=== PATIENT | male | born 1955 | race Caucasian/White ===

== ENCOUNTER 2016-12-06 09:39 | Inpatient (IN) | payer MEDICARE, OTHER ==
[~2016-12-06] VITALS: Ht 177.8 cm; Wt 76.7 kg
[2016-12-06 10:40] LABS: BUN/CREATININE RATIO 15 (0-10)
[2016-12-06 10:53] LABS: HEMOGLOBIN 17.9 gm/dl (14.0-17.5); RED BLOOD COUNT 5.78 M/UL (4.20-5.50); WHITE BLOOD COUNT 2.7 K/UL (4.5-11.0)
[2016-12-06 16:12] LABS: HEMOGLOBIN 16.5 gm/dl (14.0-17.5); RED BLOOD COUNT 5.38 M/UL (4.20-5.50)
[2016-12-06 16:14] LABS: WHITE BLOOD COUNT 3.5 K/UL (4.5-11.0)
[2016-12-06] MEDS ORDERED: NITROGLYCERIN0.4 MG SL (17:54)
[2016-12-06] MEDS ORDERED: PROVENTIL HFA 61 INH INH (18:01)
[2016-12-07 06:30] LABS: BUN/CREATININE RATIO 18 (0-10)
[2016-12-07 06:40] LABS: HEMOGLOBIN 15.8 gm/dl (14.0-17.5); RED BLOOD COUNT 5.14 M/UL (4.20-5.50); WHITE BLOOD COUNT 2.9 K/UL (4.5-11.0)
[2016-12-07 17:46] LABS: ACINETOBACTER BAUMANNII Not Detected (Negative); CANDIDA ALBICANS Not Detected (Negative); CANDIDA KRUSEI Not Detected (Negative); CANDIDA TROPICALIS Not Detected (Negative); ENTEROCOCCUS Not Detected (Negative); ESCHERICHIA COLI Not Detected (Negative); HAEMOPHILUS INFLUENZAE Not Detected (Negative); KLEBSIELLA OXYTOCA Not Detected (Negative); KLEBSIELLA PNEUMONIAE Not Detected (Negative); KPC-CARBAPENEM-RESISTANCE GENE Not Detected (Negative); PROTEUS Not Detected (Negative); PSEUDOMONAS AERUGINOSA Not Detected (Negative); SERRATIA MARCESANS Not Detected (Negative); STAPHYLOCOCCUS AUREUS Not Detected (Negative); STREP AGALACTIAE (GROUP B) Not Detected (Negative); STREP PYOGENES (GROUP A) Not Detected (Negative); STREPTOCOCCUS Not Detected (Negative); mecA (METHICILLIN RESIST GENE Not Detected (Negative); vanA/B (VANCOMYCIN RESIST GENE Not Detected (Negative)
[2016-12-07 19:34] LABS: STAPHYLOCOCCUS DETECTED (Negative)
[2016-12-08 06:22] LABS: HEMOGLOBIN 15.2 gm/dl (14.0-17.5); RED BLOOD COUNT 4.97 M/UL (4.20-5.50); WHITE BLOOD COUNT 8.9 K/UL (4.5-11.0)
[2016-12-08 06:35] LABS: BUN/CREATININE RATIO 24 (0-10)
[2016-12-09 06:18] LABS: HEMOGLOBIN 14.6 gm/dl (14.0-17.5); RED BLOOD COUNT 4.87 M/UL (4.20-5.50)
[2016-12-09 06:29] LABS: BUN/CREATININE RATIO 23 (0-10)
[2016-12-09] MEDS ORDERED: LOPRESSOR 25 MG25 MG PO (13:26)
[2016-12-09] MEDS ORDERED: DULERA 100 MCG8.8 GM INH (13:27)
[2016-12-09] MEDS ORDERED: THERAGRAN M TAB1 EA PO (13:29)
[2016-12-09] MEDS ORDERED: SPIRIVA HANDIH18 MCG INH (13:30)
[2016-12-09] MEDS ORDERED: LISINOPRIL2.5 MG PO (13:30)
== END 2016-12-09 14:02 | disposition home or self-care (01) | DRG 813 ==
LOC: ER1 09:39 → ZEROF 14:28 → M/S 17:25
PROVIDERS: Physician Assistant; Specialist/Technologist Athletic Trainer; ADMIT Internal Medicine Infectious Disease
PROC: 6A550Z2 Pheresis of Platelets, Single (ICD-10-PCS; principal; 2016-12-06)
DX: D69.6 Thrombocytopenia, unspecified (principal); J44.1 Chronic obstructive pulmonary disease with (acute) exacerbation; E87.1 Hypo-osmolality and hyponatremia; E87.2 Acidosis; K70.30 Alcoholic cirrhosis of liver without ascites; B34.9 Viral infection, unspecified; I70.212 Atherosclerosis of native arteries of extremities with intermittent claudication, left leg; D75.1 Secondary polycythemia; I25.119 Atherosclerotic heart disease of native coronary artery with unspecified angina pectoris; F10.10 Alcohol abuse, uncomplicated; F17.210 Nicotine dependence, cigarettes, uncomplicated; Z95.1 Presence of aortocoronary bypass graft; Z95.5 Presence of coronary angioplasty implant and graft; Z91.19 Patient's noncompliance with other medical treatment and regimen; Z91.14 Patient's other noncompliance with medication regimen; Z72.3 Lack of physical exercise; Z79.899 Other long term (current) drug therapy; Z98.49 Cataract extraction status, unspecified eye; Z98.890 Other specified postprocedural states; Z82.49 Family history of ischemic heart disease and other diseases of the circulatory system; Z83.3 Family history of diabetes mellitus
CPT/HCPCS: ECHO; 36415; 36600; 71010; 80053; 81001; 82150; 82436; 82550; 82553; 82607; 82747; 82803; 83615; 83690; 83735; 83874; 83880; 83921; 84133; 84300; 84484; 85007; 85025; 85027; 85384; 85610; 85730; 86850; 86900; 86901; 87040; 87077; 87086; 87150; 87186; 93005; 93306; 93925; 94640; 94664; 99285; G0480; J0696; J2405; J2930; J7030; J7040; J7050; P9035; Q0163; Q9962

== ENCOUNTER → 2017-01-07 | Outpatient (CLI) | payer MEDICARE, OTHER ==
[~2017-01-07] MED LIST: DULERA 100 MCG8.8 GM INH; LISINOPRIL2.5 MG PO; LOPRESSOR 25 MG25 MG PO; NITROGLYCERIN0.4 MG SL; PROVENTIL HFA 61 INH INH; SPIRIVA HANDIH18 MCG INH; THERAGRAN M TAB1 EA PO
== END ==
LOC: HEART 5 08:44
DX: I50.20 Unspecified systolic (congestive) heart failure (principal)
CPT/HCPCS: 78452; A9502; J2785

== ENCOUNTER 2020-12-12 11:22 | Emergency (ER) | payer MEDICARE, OTHER ==
[~2020-12-12 11:22] MED LIST changes: +ATORVASTATIN CA40 MG PO; +BACTRIM DS TAB1 EACH PO; +CETIRIZINE HCL10 MG PO; +CILOSTAZOL50 MG PO; +DOCUSATE SODIU100 MG PO; +IMDUR ER TAB 3030 MG PO; +INH; +INH INH; +LORATADINE10 MG PO; +MELOXICAM15 MG PO; +NITROSTAT 0.40.4 MG SL; +NORCO 10-325 T1 EACH PO; +PLETAL 100 MG100 MG PO; +ROPINIROLE HC0.25 MG PO; +VENTOLIN HFA 66.7 GM INH; +VIT D2 PO; +VITAMIN D250 MCG PO; +XANAX1 MG PO
[2020-12-12 12:04] LABS: HEMOGLOBIN 16.2 gm/dl (14.0-17.5); RED BLOOD COUNT 5.09 M/UL (4.20-5.50); WHITE BLOOD COUNT 13.6 K/UL (4.5-11.0)
[2020-12-12 12:26] LABS: BUN/CREATININE RATIO 15 (0-10)
== END 2020-12-12 18:01 | disposition short-term general hospital (02) ==
LOC: ER1 11:22
PROVIDERS: Physician Assistant Medical
DX: S02.101A Fracture of base of skull, right side, initial encounter for closed fracture (principal); S50.812A Abrasion of left forearm, initial encounter; S50.811A Abrasion of right forearm, initial encounter; V49.40XA Driver injured in collision with unspecified motor vehicles in traffic accident, initial encounter; I11.0 Hypertensive heart disease with heart failure; I50.9 Heart failure, unspecified; Z95.1 Presence of aortocoronary bypass graft; F17.210 Nicotine dependence, cigarettes, uncomplicated; Y92.410 Unspecified street and highway as the place of occurrence of the external cause; Z20.822 Contact with and (suspected) exposure to COVID-19
CPT/HCPCS: 70450; 71045; 71260; 72125; 72170; 80053; 81001; 82962; 84484; 85025; 85610; 90471; 90715; 93005; 99285; Q9967; U0002